=== PATIENT | female | born 1940 | race Native Hawaiian/Other Pacific Islander ===

== ENCOUNTER 2022-11-27 16:38 | Emergency (ER) | payer OTHER ==
[~2022-11-27] VITALS: Ht 160 cm; Wt 78.5 kg
[2022-11-27 17:11] LABS: PLATELET COUNT 375 K/uL (152-353)
[2022-11-27 17:17] LABS: POTASSIUM 3.1 mmol/L (3.6-5.2)
[2022-11-27 19:14] VITALS: BP 180/96; TEMP 100
[2022-11-28] MEDS ORDERED: TYLENOL325 MG PO (08:06)
[2022-11-28] MEDS ORDERED: AMLODIPINE BESYLATE PO (08:07)
[2022-11-28] MEDS ORDERED: LISI20TA11 PO (08:07)
[2022-11-28] MEDS ORDERED: NOVOLOG FL100 UNIT/M SC (08:10)
[2022-11-28] MEDS ORDERED: SANTYL250 UNIT/G TOP (08:13)
[2022-12-04] MEDS ORDERED: MEGE40TA32 PO (09:14)
[2022-12-04] MEDS ORDERED: NORVASC 5MG TAB PO (09:14)
[2022-12-04] MEDS ORDERED: VITAMIN D50000 UNIT PO (09:15)
[2022-12-04] MEDS ORDERED: LISI20TA11 PO (09:15)
[2022-12-04] MEDS ORDERED: MAGNSUS68 PO (09:15)
== END 2022-11-27 19:10 | disposition still patient (30) ==
LOC: ED 16:38
PROVIDERS: Family Medicine
DX: R45.6 Violent behavior (principal); R41.0 Disorientation, unspecified; Z02.79 Encounter for issue of other medical certificate
CPT/HCPCS: 80053; 81002; 85027; 87635; 93005; 99283; U0003